=== PATIENT | male | born 1965 | race Caucasian/White ===

== ENCOUNTER 2021-11-30 19:44 | Emergency (ER) | payer BC ==
[~2021-11-30] VITALS: Ht 177.8 cm; Wt 100.0 kg
[2021-11-30 22:57] LABS: BASOPHILS % 0.5 % (0.0-2.0); EOSINOPHILS % 0.1 % (0.0-5.0); HEMATOCRIT. 40.5 % (42.0-52.0); HEMOGLOBIN. 13.3 g/dL (14.0-18.0); LYMPHOCYTES % 10.6 % (20.0-50.0); MEAN CORPUSCULAR HEMOGLOBIN 30.5 pg (28.0-32.0); MEAN CORPUSCULAR VOLUME 92.8 fL (80.0-94.0); MEAN PLATELET VOLUME 7.4 fl (7.4-10.4); MONOCYTES % 2.8 % (2.0-8.0); PLATELET 207 x1000/uL (130-400); RED BLOOD CELL COUNT 4.36 mill/uL (4.7-6.1); RED CELL DISTRIBUTION WIDTH 14.9 % (11.6-14.6)
[2021-11-30 23:00] LABS: CHLORIDE 104 mEq/L (98-107)
[2021-11-30 23:05] LABS: ETHANOL BLOOD 170 mg/dL
[2021-11-30] MEDS ORDERED: FENTANYL CITRATE/PF 50MCG/ML 2ML VIAL IV ONE (23:45)
[2021-11-30] MEDS ORDERED: LIDOCAINE HCL 1% 20ML VIAL (Pyxis) INJ INFIL ONE (23:45)
[2021-12-01] MEDS ORDERED: PROPOFOL 200MG/20ML VIAL IV ONE (01:15)
[2021-12-01] MEDS ORDERED: KETAMINE HCL 50 MG/ML 10ML IV ONE (01:15)
[2021-12-01] MEDS ORDERED: IBUP-2030 MT (04:26)
[2021-12-01 04:40] VITALS: BP 109/67
== END 2021-12-01 04:50 | disposition home or self-care (01) ==
LOC: ER 19:44
DX: S43.084A Other dislocation of right shoulder joint, initial encounter (principal); W18.39XA Other fall on same level, initial encounter; Y93.89 Activity, other specified; Y92.89 Other specified places as the place of occurrence of the external cause; Y99.8 Other external cause status
CPT/HCPCS: 23650; 36415; 73030; 80048; 80320; 85025; 96374; 99152; 99285; J2704; J3010; J3490; G0480